=== PATIENT | female | born 1970 | race Caucasian/White ===

== ENCOUNTER 2020-05-12 03:15 | Emergency (ER) | payer OTHER ==
[~2020-05-12] VITALS: Ht 154.9 cm; Wt 58.0 kg
[2020-05-12] MEDS ORDERED: HYDROmorphone 2 MG/ML, 1ML IVPush PRN (03:30)
[2020-05-12] MEDS ORDERED: SODIUM CHLORIDE 0.9% 1,000ML IVBOLUS ONE (03:30)
[2020-05-12] MEDS ORDERED: PROMETHAZINE 25 MG/ML, 1ML IM ONE (03:30)
[2020-05-12] MEDS ORDERED: SODIUM CHLORIDE FLUSH 10ML SYR IVF ONE (03:30)
[2020-05-12] MEDS ORDERED: ONDANSETRON 2MG/ML, 2ML IVPush ONE (03:30)
[2020-05-12] MEDS ORDERED: PROMETHAZINE 25 MG/ML, 1ML ONE (03:31)
[2020-05-12] MEDS ORDERED: ONDANSETRON 2MG/ML, 2ML ONE (03:32)
[2020-05-12] MEDS ORDERED: HYDROmorphone 1 MG/ML, 1ML INJ ONE ×2 (03:32→05:58)
--- NOTE | 2020-05-12 04:00 | NUR ---
pt had kidney stone removal "24 hours ago" pt has been having nausea and abdomen pain since 0030 tonight. pt was crying and unable to provide much info when initally assessed. iv placed, medicated per emar, labs sent. pt calm and feeling better. pt refusing straight cath at this time. will reassess
[2020-05-12 04:05] LABS: BASOPHILS % (AUTO) 0 % (0-1); EOSINOPHILS % (AUTO) 0 % (1-7); LYMPHOCYTES % (AUTO) 8 % (22-44); MEAN CORPUSCULAR HEMOGLOBIN 30.7 pg (27.0-34.8); MEAN PLATELET VOLUME 9.3 fL (7.4-10.4); MONOCYTES % (AUTO) 5 % (2-9); NEUTROPHILS % (AUTO) 87 % (42-75); PLATELET COUNT 216 x10^3/uL (130-400); RED BLOOD COUNT 4.84 x10^6/uL (3.82-5.3); RED CELL DISTRIBUTION WIDTH 13.5 % (9.6-15.2)
[2020-05-12 04:07] LABS: MD NO
--- NOTE | 2020-05-12 04:08 | NUR ---
PT ADAMANTLY REFUSING STRAIGHT CATH URINE, PT STATES NO BLOODY DISCHARGE SEEN FOR A DAY. PT WILLING TO PROVIDE CLEAN CATCH. ERP AWARE, ORDER CHANGED.
[2020-05-12] MEDS ORDERED: KETOROLAC 30 MG/1 ML ONE (04:10)
[2020-05-12 04:12] LABS: ALANINE AMINOTRANSFERASE 31 U/L (12-78); ALBUMIN 3.8 g/dL (3.4-5.0); ANION GAP 8 mmol/L (5-15); CHLORIDE 107 mmol/L (98-107); CREATININE 1.24 mg/dL (0.55-1.02)
[2020-05-12 04:17] LABS: ALKALINE PHOSPHATASE 85 U/L (45-117); BILIRUBIN,TOTAL 0.7 mg/dL (0.2-1.0); TOTAL PROTEIN 7.2 g/dL (6.4-8.2)
--- NOTE | 2020-05-12 04:27 | NUR ---
LAURA COLLECTED, PT TO CT SCAN
[2020-05-12] MEDS ORDERED: KETOROLAC 30 MG/1 ML IVPush ONE (04:30)
[2020-05-12 04:45] LABS: MICROSCOPIC INDICATED
--- NOTE | 2020-05-12 06:04 | NUR ---
Straight cath via sterile technique done by this nurse and walked to lab. Pt tolerated px.
--- NOTE | 2020-05-12 06:06 | NUR ---
PT MEDICATED FOR PAIN PER EMAR. GIVEN 0.5MG DILAUDID, PER MD ORDER
[2020-05-12] MEDS ORDERED: HYDROmorphone 2 MG/ML, 1ML IVPush STA (06:14)
[2020-05-12 06:31] LABS: MICROSCOPIC INDICATED
--- NOTE | 2020-05-12 06:49 | NUR ---
report given to carlos patten
--- NOTE | 2020-05-12 07:03 | NUR ---
Recvd report from Zoey GRAY. pt sleeping comfortably in gurney, respirations even and unlabored. spouse at bedside. call light within reach.
--- NOTE | 2020-05-12 08:10 | NUR ---
provider at bedside to discuss disposition.
[2020-05-12] MEDS ORDERED: IBUPROFEN 800 MG TABLET ONE (08:12)
--- NOTE | 2020-05-12 08:13 | NUR ---
800MG IBUPROFIN PER VERBAL ORDER PER DR. PISANO.
[2020-05-12] MEDS ORDERED: IBUPROFEN 200 MG TABLET PO ONE (08:30)
[2020-05-12 09:00] VITALS: BP 96/61
--- NOTE | 2020-05-12 09:02 | NUR ---
Patient/Caregiver given discharge instructions and they have confirmed that they understand the instructions. Patient discharged in wheelchair with spouse at side.
== END 2020-05-12 09:04 | disposition home or self-care (01) ==
LOC: ED 04:11
DX: N20.1 Calculus of ureter (principal); R11.2 Nausea with vomiting, unspecified
CPT/HCPCS: 36415; 74176; 80053; 81001; 83690; 84703; 85025; 87086; 96361; 96372; 96374; 96375; 96376; 99285; J1170; J1885; J2405; J2550; J7030